=== PATIENT | female | born 1970 | race Hispanic/Latino ===

== ENCOUNTER → 2017-06-04 | Outpatient (CLI) | payer OTHER ==
--- NOTE | 2017-06-12 08:23 | Diagnostic Imaging Report ---
#[id number] - MGSCRBIL #BILATERAL DIGITAL SCREENING MAMMOGRAM WITH CAD: 06/04/2017 Comparison is made to exam dated: 06/15/2016 mammogram - [facility]. Current study contains 4 films. The tissue of both breasts is heterogeneously dense. This may lower the sensitivity of mammography. Current study was also evaluated with a Computer Aided Detection (CAD) system. There are benign intramammary nodes in the left breast. There is a mole marker on both breasts. No significant masses, calcifications, or other findings are seen in either breast. There has been no significant interval change. IMPRESSION: BENIGN There is no mammographic evidence of malignancy. A 1 year screening mammogram is recommended. The patient will be notified by letter of the results. David tafoya/bryan:06/11/2017 13:32:42 Nuclear Power Reactor Operator: Shelia SAUCEDA(Ashtyn)(Matilde), [facility] letter sent: Compared to Prior B9 Mammogram BI-RADS: 2 Benign
== END ==
LOC: MAMMO 14:48
PROVIDERS: ATTEND Internal Medicine
DX: Z12.31 Encounter for screening mammogram for malignant neoplasm of breast (principal)
CPT/HCPCS: 77067

== ENCOUNTER → 2018-05-07 | Outpatient (CLI) | payer OTHER ==
--- NOTE | 2018-05-09 09:10 | Diagnostic Imaging Report ---
#[id number] - MGSCRBIL #BILATERAL DIGITAL SCREENING MAMMOGRAM WITH CAD: 05/07/2018 CLINICAL: Routine screening. Comparison is made to exams dated: 06/04/2017 mammogram and 06/15/2016 mammogram - [facility]. Current study contains 4 films. The tissue of both breasts is heterogeneously dense. This may lower the sensitivity of mammography. Current study was also evaluated with a Computer Aided Detection (CAD) system. There are benign intramammary nodes in both breasts. Where there were mole markers on the prior study are benign appearing nodules; apparently not being marked with mole markers on the current study. No significant masses, calcifications, or other findings are seen in either breast. There has been no significant interval change. IMPRESSION: BENIGN There is no mammographic evidence of malignancy. A 1 year screening mammogram is recommended. The patient will be notified by letter of the results. David Farrell Jr., D.O. cw/:05/08/2018 11:03:17 Machine Wood Sander: Gissell NOVA)(M), [facility] letter sent: Compared to Prior B9 Mammogram BI-RADS: 2 Benign
== END ==
LOC: MAMMO 14:43
PROVIDERS: ATTEND Family Medicine
DX: Z12.31 Encounter for screening mammogram for malignant neoplasm of breast (principal)
CPT/HCPCS: 77067

== ENCOUNTER → 2018-05-29 | Outpatient (CLI) | payer OTHER ==
--- NOTE | 2018-05-30 08:28 | Diagnostic Imaging Report ---
#[id number] - USBRECOMRT ULTRASOUND OF THE RIGHT BREAST : 05/29/2018 Comparison is made to exam dated: 05/07/2018 mammogram - [facility]. Color flow and real-time ultrasound were performed on the entire right breast with scanning in all four quadrants, retroareolar region and the right axilla. -At 5 o'clock 1 cm from the nipple there is a benign cyst measuring 3 x 2 x 4 mm. -At 9 o'clock 2 cm from the nipple there is a benign cyst measuring 4 x 2 x 4 mm. IMPRESSION: BENIGN There is no sonographic evidence of malignancy. A 1 year screening mammogram is recommended. David Farrell Jr., D.O. cw/:05/29/2018 15:51:57 Bulb Planter: Allison Johnston RDMS, [facility] letter sent: Normal Exam Ultrasound BI-RADS: 2 Benign
--- NOTE | 2018-05-30 08:28 | Diagnostic Imaging Report ---
#[id number] - USBRECOMLT ULTRASOUND OF THE LEFT BREAST : 05/29/2018 Comparison is made to exam dated: 05/07/2018 mammogram - [facility]. Color flow and real-time ultrasound were performed on the entire left breast with scanning in all four quadrants, retroareolar region and the left axilla. -At 4 o'clock 3 cm from the nipple is a cluster of cysts measuring 7 x 2 x 5 mm. IMPRESSION: BENIGN There is no sonographic evidence of malignancy. A 1 year screening mammogram is recommended. David Farrell Jr., D.O. cw/:05/29/2018 15:55:15 Branch Lead: Allison Johnston RDMS, [facility] letter sent: Normal Exam Ultrasound BI-RADS: 2 Benign
== END ==
LOC: US 10:31
PROVIDERS: ATTEND Family Medicine
DX: R92.2 Inconclusive mammogram (principal)

== ENCOUNTER → 2020-01-23 | Outpatient (CLI) | payer OTHER | LOC: MAMMO 12:54 | PROVIDERS: ATTEND Obstetrics & Gynecology | DX: Z12.31 Encounter for screening mammogram for malignant neoplasm of breast (principal) | CPT/HCPCS: 77067 ==

== ENCOUNTER → 2020-03-03 | Outpatient (CLI) | payer OTHER ==
--- NOTE | 2020-03-05 16:55 | Diagnostic Imaging Report ---
#[id number] - USBRECOMLT ULTRASOUND OF THE LEFT BREAST : 03/03/2020 Comparison is made to exam dated: 01/23/2020 mammogram - [facility]. Color flow and real-time ultrasound were performed on the left breast. Woodard scale images of the real-time examination were reviewed. No abnormalities were seen sonographically in the left axilla. Scattered small benign simple cysts. IMPRESSION: BENIGN There is no sonographic evidence of malignancy. A 1 year screening mammogram is recommended. JOSIAH HORVATH M.D. kw/:03/05/2020 16:08:16 Manager Medical Device: RATNA CLARK [facility], [facility] letter sent: Normal Exam Ultrasound BI-RADS: 2 Benign
--- NOTE | 2020-03-05 16:55 | Diagnostic Imaging Report ---
#[id number] - USBRESSM REHABRT ULTRASOUND OF THE RIGHT BREAST : 03/03/2020 Comparison is made to exam dated: 01/23/2020 mammogram - [facility]. Color flow and real-time ultrasound were performed on the right breast. Woodard scale images of the real-time examination were reviewed. No sonographic evidence of malignancy. Scattered benign small simple cysts. IMPRESSION: BENIGN There is no sonographic evidence of malignancy. A 1 year screening mammogram is recommended. JOSIAH HORVATH M.D. kw/:03/05/2020 16:07:40 Business Planning Analyst: RATNA CLARK [facility], [facility] letter sent: Normal Exam Ultrasound BI-RADS: 2 Benign
== END ==
LOC: US 12:48
PROVIDERS: ATTEND Obstetrics & Gynecology
DX: R92.2 Inconclusive mammogram (principal)